=== PATIENT | female | born 2000 | race Caucasian/White ===

== ENCOUNTER 2018-05-27 06:29 | Emergency (ER) | payer SELFPAY ==
[~2018-05-27] VITALS: Ht 172.7 cm; Wt 149.7 kg
[~2018-05-27 06:29] MED LIST: BIRTH CONTROL; CYCL10TA9; DOXY50CA6 PO; HYDR1TAB PO; METF-479 PO; NAPR-915; OMEP20TA7 PO; ONDA8TAB9 PO; PEPCID; PRD20T PO; SPIR25TA5 PO; TYLENOL; VIT
[2018-05-27 06:37] VITALS: BP 151/98
[2018-05-27] MEDS ORDERED: LIDOCAINE 2% VISCOUS 15 ML UDC PO ONE (06:45)
--- NOTE | 2018-05-27 06:52 | ED EENT ---
History of Present Illness General Chief Complaint: Dental Problems/Pain Stated Complaint: L SIDE MOUTH SWOLLEN Source: patient Exam Limitations: no limitations History of Present Illness Date Seen by Provider: May 27, 2018 Time Seen by Provider: 06:43 Initial Comments The patient presents to the ER by private conveyance with her mother and significant other and chief complaint that she's had a dental abscess diagnosed on Monday, 2 days ago by her primary care doctor and dentist. She was set up with an appointment to have the dental abscess taking care of in one but started on amoxicillin and Monday. This would be a day two of antibiotic treatment and she is noticing more swelling on her upper left maxillary periodontal region. She's not noticing a discharge, fevers nausea chills. She was told that if it doesn't get better she may switch up antibiotics and since she is having quite a bit of pain and swelling there she would like to try different antibiotic. She was given Tylenol Motrin and a mouthwash which she's been using. She has not been using Orajel. She says the pain is still quite severe. Allergies and Home Medications Allergies Coded Allergies: Loc Known Allergies (Verified Allergy, Mild, 08/05/09) Home Medications Metformin HCl 1,000 Mg Tab.er.24, 1,000 MG PO DAILY, (Reported) Omeprazole 20 Mg Tablet.dr, 20 MG PO BID WITH MEALS Prescribed by: TUAN POLLARD on 09/14/16 0544 Ondansetron 8 Mg Tab.rapdis, 8 MG PO TID PRN for NAUSEA Prescribed by: DENISE SABILLON on 09/17/16 1338 Spironolactone 25 Mg Tablet, 25 MG PO DAILY, (Reported) Patient Home Medication List Home Medication List Reviewed: Yes Review of Systems Constitutional: No chills, No diaphoresis Eyes: Denies Blindness, Denies Blurred Vision Ears: Denies Dizziness, Denies Pain Nose: denies clots, denies congestion Mouth: denies clots; pain, swelling; denies bloody discharge, denies clear discharge, denies purulent discharge Throat: denies neck stiffness, denies hoarse, denies aphonia Respiratory: No cough, No short of breath Cardiovascular: No chest pain, No edema Gastrointestinal: No abdominal pain, No constipation, No diarrhea, No nausea Past Lbagcya-Uenskv-Usadag Hx Patient Social History Alcohol Use: Denies Use Recreational Drug Use: No Smoking Status: Never a Smoker 2nd Hand Smoke Exposure: Yes ([employer]ILY [employer] SMOKE) Recent Foreign Travel: No Contact w/Someone Who Travel: No Recent Hopitalizations: No Immunizations Up To Date Tetanus Booster (TDap): Less than 5yrs PED Vaccines UTD: Yes Seasonal Allergies Seasonal Allergies: No Past Medical History Reproductive Disorders: Yes Female Reproductive Disorders: Polycystic Ovarian Dis Sexually Transmitted Disease: No Adverse Reaction/Blood Tranf: No Family Medical History No Pertinent Family Hx Physical Exam Height, Weight, BMI Height: 5', 8" Weight: 320lbs oz, 145.875495wv Method:Stated ,48.65BMI General Appearance: WD/WN, no apparent distress Eyes: bilateral eye normal inspection, bilateral eye PERRL, bilateral eye EOMI Ears: bilateral ear auricle normal, bilateral ear canal normal, bilateral ear TM normal Nose: normal inspection; No active bleeding, No discharge Mouth/Throat: other (diffuse dental caries with a medial maxillary gumline and swelling approximately 1 cm in diameter consistent with dental abscess but no drainage.) Cardiovascular: normal peripheral pulses, regular rate, rhythm Respiratory: no respiratory distress, no accessory muscle use Neurologic/Psychiatric: alert, oriented x 3 Progress/Results/Core Measures Results/Orders My Orders Orders - SHAWN MARTINEZ Lidocaine 2% Viscous 15 Ml (Xylocaine Vi (05/27/18 06:45) Progress Progress Note : Time: 06:50 Progress Note We've explained the patient expect 3-4 days for antibiotics to result in being helpful. Were happy to provide her with another prescription for clindamycin as she is adamant that the amoxicillin was not working. We will also provide her some viscous lidocaine for immediate relief. Encourage her to continue the Tylenol Motrin and follow-up with her dentist. Departure Impression Primary Impression: Dental abscess Disposition: 01 HOME, SELF-CARE Condition: Stable Departure-Patient Inst. Decision time for Depature: 06:51 Referrals: [facility] (PCP) Primary Care Physician NO,LOCAL PHYSICIAN (Family) Primary Care Physician Patient Instructions: Tooth Abscess (DC) Add. Discharge Instructions: Use 1000 mg Tylenol every 8 hours in addition to 800 mg ibuprofen every 8 hours for pain. You can also use ice and heat. You can use the viscous lidocaine applied to the gauze and bite down gently over the tooth that hurting so colds or flu the tooth. If you run out of the viscous lidocaine you can use Orajel in the same manner. Continue your antibiotics. Do not expect improvement from antibiotics for at least 3-4 days. If you have difficulty swallowing fluids or breathing should return to the ER. Otherwise follow up with your dentist as the only appropriate treatment for an abscess is a dental surgical procedure. All discharge instructions reviewed with patient and/or family. Voiced understanding. Scripts Clindamycin HCl (Clindamycin HCl) 150 Mg Capsule 450 MG PO TIDWM for 7 Days, #63 CAP 0 Refills Prov: SHAWN MARTINEZ 05/27/18 Copy Copies To 1: JESUS EPPERSON DO SHAWN MARTINEZ May 27, 2018 06:52
[2018-05-27] MEDS ORDERED: CLIN150C17 PO (06:55)
== END 2018-05-27 07:00 | disposition home or self-care (01) ==
LOC: EDUNIT# 06:29 → ER 06:33
DX: K04.7 Periapical abscess without sinus (principal); Z79.84 Long term (current) use of oral hypoglycemic drugs; Z77.22 Contact with and (suspected) exposure to environmental tobacco smoke (acute) (chronic)
CPT/HCPCS: 99283

== ENCOUNTER 2019-07-18 15:06 | Emergency (ER) | payer SELFPAY ==
[~2019-07-18] VITALS: Ht 170.2 cm; Wt 156.5 kg
[~2019-07-18 15:06] MED LIST changes: +CLIN150C17 PO
--- NOTE | 2019-07-18 16:08 | ED GU-Female ---
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 [facility] DIRECTED HER HERE. Nursing Sepsis Screen: No Definite Risk Source: patient Exam Limitations: no limitations History of Present Illness Date Seen by Provider: Jul 18, 2019 Time Seen by Provider: 16:06 Initial Comments To ER with reports of vaginal spotting for about the past year intermittently. Starting 1 week ago she's been having heavy vaginal bleeding using both pads and tampons to the tune of about 8 tampons and 4-5 pads per day. She has some midline lower abdominal cramping. She is sexually active, is a possibility but she has not done a test. No fevers or chills. Timing/Duration: constant Severity/Quality: cramping Location: suprapubic Radiation: suprapubic Activities at Onset: none Prior Genitourinary Problems: none Allergies and Home Medications Allergies Coded Allergies: Loc Known Allergies (Verified Allergy, Mild, 08/05/09) Home Medications Clindamycin HCl 150 Mg Capsule, 450 MG PO TIDWM Prescribed by: SHAWN MARTINEZ on 05/27/18 0655 Metformin HCl 1,000 Mg Tab.er.24, 1,000 MG PO DAILY, (Reported) Omeprazole 20 Mg Tablet.dr, 20 MG PO BID WITH MEALS Prescribed by: TUAN POLLARD on 09/14/16 0544 Ondansetron 8 Mg Tab.rapdis, 8 MG PO TID PRN for NAUSEA Prescribed by: DENISE SABILLON on 09/17/16 1338 Spironolactone 25 Mg Tablet, 25 MG PO DAILY, (Reported) Patient Home Medication List Home Medication List Reviewed: Yes Review of Systems Review of Systems Constitutional: see HPI EENTM: see HPI Respiratory: no symptoms reported Cardiovascular: no symptoms reported Genitourinary: no symptoms reported Musculoskeletal: see HPI Skin: no symptoms reported Psychiatric/Neurological: No Symptoms Reported Endocrine: No Symptoms Reported Hematologic/Lymphatic: No Symptoms Reported Past Eqjlrgm-Qgdmtd-Cubeix Hx Patient Social History Alcohol Use: Rarely Uses Recreational Drug Use: No Smoking Status: Never a Smoker 2nd Hand Smoke Exposure: Yes ([employer] SMOKE) Recent Foreign Travel: No Contact w/Someone Who Travel: No Recent Infectious Disease Expo: No Recent Hopitalizations: No Immunizations Up To Date Tetanus Booster (TDap): Less than 5yrs PED Vaccines UTD: Yes Seasonal Allergies Seasonal Allergies: No Past Medical History Surgeries: Yes (WISDOM TEETH) Respiratory: No Cardiac: No Neurological: No Reproductive Disorders: Yes Female Reproductive Disorders: Polycystic Ovarian Dis Sexually Transmitted Disease: No Genitourinary: No Gastrointestinal: No (GB removed) Musculoskeletal: No Endocrine: No Cancer: No Psychosocial: No Integumentary: No Blood Disorders: No Adverse Reaction/Blood Tranf: No Family Medical History No Pertinent Family Hx Physical Exam Vital Signs Vital Signs - First Documented 07/18/19 15:19 Temp 97.9 Pulse 110 Resp 18 Pulse Ox 98 Capillary Refill : Less Than 3 Seconds Height, Weight, BMI Height: 5'7.00" Weight: 345lbs. 0oz. 156.631657pc; 48.65 BMI Method:Actual General Appearance: WD/WN, no apparent distress, obese HEENT: PERRL/EOMI, normal ENT inspection Cardiovascular: regular rate, rhythm, no murmur Respiratory: no respiratory distress, no accessory muscle use Gastrointestinal: normal bowel sounds, non tender, soft Pelvic: other (pelvic exam done with Eros RN at the bedside. There is no cervical motion tenderness. There is no vaginal lesion. There is clotted blood coming from the cervical os.) Extremities: normal range of motion, non-tender Neurologic/Psychiatric: alert, normal mood/affect, oriented x 3 Skin: normal color, warm/dry Progress/Results/Core Measures Suspected Sepsis Recent Fever Within 48 Hours: No Infection Criteria Present: None New/Unexplained Altered Menta: No Sepsis Screen: No Definite Risk SIRS Temperature:97.9 Pulse: 110 Respiratory Rate: 18 Laboratory Tests 07/18/19 16:17: White Blood Count 10.0 Blood Pressure / Mean: Laboratory Tests 07/18/19 16:17: Creatinine 0.71, Platelet Count 354, Total Bilirubin 0.6 Results/Orders Lab Results Laboratory Tests Test 07/18/19 00:00 07/18/19 14:17 07/18/19 16:17 07/18/19 17:22 Range/Units White Blood Count 10.0 4.3-11.0 10^3/uL Red Blood Count 4.66 4.35-5.85 10^6/uL Hemoglobin 13.0 11.5-16.0 G/DL Hematocrit 39 35-52 % Mean Corpuscular Volume 85 80-99 FL Mean Corpuscular Hemoglobin 28 25-34 PG Mean Corpuscular Hemoglobin Concent 33 32-36 G/DL Red Cell Distribution Width 14.4 10.0-14.5 % Platelet Count 354 130-400 10^3/uL Mean Platelet Volume 10.4 7.4-10.4 FL Neutrophils (%) (Auto) 62 42-75 % Lymphocytes (%) (Auto) 32 12-44 % Monocytes (%) (Auto) 5 0-12 % Eosinophils (%) (Auto) 1 0-10 % Basophils (%) (Auto) 0 0-10 % Neutrophils # (Auto) 6.2 1.8-7.8 X 10^3 Lymphocytes # (Auto) 3.2 1.0-4.0 X 10^3 Monocytes # (Auto) 0.5 0.0-1.0 X 10^3 Eosinophils # (Auto) 0.1 0.0-0.3 10^3/uL Basophils # (Auto) 0.0 0.0-0.1 10^3/uL Sodium Level 140 135-145 MMOL/L Potassium Level 3.7 3.6-5.0 MMOL/L Chloride Level 106 98-107 MMOL/L Carbon Dioxide Level 19 L 21-32 MMOL/L Anion Gap 15 H 5-14 MMOL/L Blood Urea Nitrogen 11 7-18 MG/DL Creatinine 0.71 0.60-1.30 MG/DL Estimat Glomerular Filtration Rate > 60 BUN/Creatinine Ratio 15 Glucose Level 101 70-105 MG/DL Calcium Level 9.4 8.5-10.1 MG/DL Corrected Calcium 9.4 8.5-10.1 MG/DL Total Bilirubin 0.6 0.1-1.0 MG/DL Aspartate Amino Transf (AST/SGOT) 47 H 5-34 U/L Alanine Aminotransferase (ALT/SGPT) 51 0-55 U/L Alkaline Phosphatase 85 40-136 U/L Total Protein 7.8 6.4-8.2 GM/DL Albumin 4.0 3.2-4.5 GM/DL Serum Test, Qualitative NEGATIVE NEGATIVE Urine Color YELLOW Urine Clarity VERY CLOUDY H Urine pH 5 5-9 Urine Specific [place] 1.020 1.016-1.022 Urine Protein 2+ H NEGATIVE Urine Glucose (UA) NEGATIVE NEGATIVE Urine Ketones 1+ H NEGATIVE Urine Nitrite NEGATIVE NEGATIVE Urine Bilirubin NEGATIVE NEGATIVE Urine Urobilinogen NORMAL NORMAL MG/DL Urine Leukocyte Esterase 1+ H NEGATIVE Urine RBC (Auto) 5+ H NEGATIVE Urine RBC TNTC H /HPF Urine WBC 2-5 /HPF Urine Crystals NONE /LPF Urine Bacteria TRACE /HPF Urine Casts NONE /LPF Urine Mucus NEGATIVE /LPF Urine Culture Indicated NO Micro Results Microbiology 07/18/19 Genital Culture, Resulted Pending 07/18/19 Wet Prep - Final, Resulted My Orders Orders - BRANDYN PRICE APRN Wet Prep (07/18/19 15:26) Neisseria Gonorrhea Swab (07/18/19 15:26) Genital Culture (07/18/19 15:26) Chlamydia Trachomatis Swab (07/18/19 15:26) Cbc With Automated Diff (07/18/19 15:26) Comprehensive Metabolic Panel (07/18/19 15:26) Ua Culture If Indicated (07/18/19 15:26) Ed Iv/Invasive Line Start (07/18/19 15:26) Hcg,Qualitative Urine (07/18/19 15:26) Ns Iv 1000 Ml (Sodium Chloride 0.9%) (07/18/19 16:15) Ketorolac Injection (Toradol Injection) (07/18/19 16:30) Hcg,Qualitative Serum (07/18/19 16:26) Medications Given in ED Current Medications Medications Dose Ordered Sig/Nury Route Start Time Stop Time Status Last Admin Dose Admin Ketorolac Tromethamine 30 mg ONCE ONCE IVP 07/18/19 16:30 07/18/19 16:31 DC 07/18/19 17:15 30 MG Vital Signs/I&O 07/18/19 15:19 Temp 97.9 Pulse 110 Resp 18 B/P (MAP) Pulse Ox 98 Capillary Refill : Less Than 3 Seconds Departure Impression Primary Impression: Episode of heavy vaginal bleeding Disposition: HOME, SELF-CARE Condition: Stable Departure-Patient Inst. Decision time for Depature: 17:30 Referrals: [facility] (PCP/Family) Primary Care Physician LAYO BERNARD DENNIS G MD SHAW, ANGELA C DO Patient Instructions: IRREGULAR VAGINAL BLEEDING Add. Discharge Instructions: 1. Take 3 of the control tablets tonight and 3 again in the morning in addition to the anti-inflammatory medications. Use the nausea medication as needed. Return to ER for any concerns. Starting on Monday, take one control tablet daily. All discharge instructions reviewed with patient and/or family. Voiced understanding. Scripts Norgestimate-Ethinyl Estradiol (Sprintec 28 Day Tablet) 1 Each Tablet 1 EACH PO DAILY, #30 TAB Prov: BRANDYN PRICE APRN 07/18/19 BRANDYN PRICE APRN Jul 18, 2019 16:08
[2019-07-18 16:26] LABS: BASOPHILS % (AUTO) 0 % (0-10); EOSINOPHILS # (AUTO) 0.1 10^3/uL (0.0-0.3); EOSINOPHILS % (AUTO) 1 % (0-10); HEMATOCRIT 39 % (35-52); LYMPHOCYTES # (AUTO) 3.2 X 10^3 (1.0-4.0); LYMPHOCYTES % (AUTO) 32 % (12-44); MEAN CORPUSCULAR HEMOGLOBIN 28 PG (25-34); MEAN CORPUSCULAR HGB CONC 33 G/DL (32-36); MEAN CORPUSCULAR VOLUME 85 FL (80-99); MEAN PLATELET VOLUME 10.4 FL (7.4-10.4); MONOCYTES # (AUTO) 0.5 X 10^3 (0.0-1.0); MONOCYTES % (AUTO) 5 % (0-12); NEUTROPHILS # (AUTO) 6.2 X 10^3 (1.8-7.8); NEUTROPHILS % (AUTO) 62 % (42-75); PLATELET COUNT 354 10^3/uL (130-400); RED CELL DISTRIBUTION WIDTH 14.4 % (10.0-14.5)
[2019-07-18 16:50] LABS: ALANINE AMINOTRANSFERASE 51 U/L (0-55); ALKALINE PHOSPHATASE 85 U/L (40-136); BILIRUBIN,TOTAL 0.6 MG/DL (0.1-1.0); BUN/CREATININE RATIO 15; CALCIUM 9.4 MG/DL (8.5-10.1); CARBON DIOXIDE 19 MMOL/L (21-32); CHLORIDE 106 MMOL/L (98-107); CREATININE SERUM 0.71 MG/DL (0.60-1.30); GFR ESTIMATED > 60; GLUCOSE 101 MG/DL (70-105); POTASSIUM 3.7 MMOL/L (3.6-5.0); SODIUM 140 MMOL/L (135-145); TOTAL PROTEIN 7.8 GM/DL (6.4-8.2)
[2019-07-18] MEDS: NS IV 1000 ML 1,000 ML IV SCH (17:15)
[2019-07-18] MEDS: KETOROLAC 30 MG/ML VIAL IVP ONE (17:15)
[2019-07-18 17:27] LABS: BILIRUBIN,URINE NEGATIVE (NEGATIVE); CLARITY,URINE VERY CLOUDY; COLOR,URINE YELLOW; GLUCOSE, URINE (UA) NEGATIVE (NEGATIVE); KETONES,URINE 1+ (NEGATIVE); LEUKOCYTE ESTERASE ,URINE 1+ (NEGATIVE); NITRITE,URINE NEGATIVE (NEGATIVE); PH,URINE 5 (5-9); PROTEIN,URINE 2+ (NEGATIVE); UROBILINOGEN,URINE NORMAL (NORMAL)
[2019-07-18 17:48] LABS: RBC,URINE TNTC /HPF
[2019-07-18 17:49] LABS: BACTERIA,URINE TRACE /HPF
[2019-07-18] MEDS ORDERED: NORG1TAB14 PO (17:54)
[2019-07-18] MEDS ORDERED: ONDA4TAB11 PO (18:06)
[2019-07-18 18:35] VITALS: BP 120/66
== END 2019-07-18 18:35 | disposition home or self-care (01) ==
LOC: EDUNIT# 15:06 → ER 15:07
DX: N93.9 Abnormal uterine and vaginal bleeding, unspecified (principal); Z32.02 Encounter for pregnancy test, result negative; Z79.84 Long term (current) use of oral hypoglycemic drugs; Z77.22 Contact with and (suspected) exposure to environmental tobacco smoke (acute) (chronic); Z87.42 Personal history of other diseases of the female genital tract
CPT/HCPCS: 36415; 80053; 81000; 84703; 85025; 87070; 87205; 87210; 87491; 87591